=== PATIENT | male | born 1955 | race Caucasian/White ===

== ENCOUNTER 2024-12-20 01:41 | Emergency (ER) | payer MEDICARE ==
[~2024-12-20] VITALS: Ht 182.9 cm; Wt 78.9 kg
--- NOTE | 2024-12-20 01:55 | ERN ---
General Chief Complaint: Blood in Urine: Stated Complaint: C/O FEVER, BLEEDING FROM PENIS AFTER PROCEDURE Time Seen by MD: 01:53 History of Present Illness Initial Comments Patient is a 59-year-old male with a history of BPH and recurrent prostatitis who underwent a cystoscopy yesterday and comes in today with rigors fever. Timing/Duration: 24 hours Allergies: Coded Allergies: No Known Allergies (Unverified Allergy, Unknown, 12/20/24) Home Meds Active Scripts Cefdinir (Cefdinir) 300 Mg Capsule, 1 CAP PO BID for 10 Days, #20 CAP 0 Refills Prov:KATYA TANNER MD 12/20/24 Past Medical History Past Medical History: Prostatitis, Unknown Past Surgical History: Unknown Constitutional: (+) chills, (+) fever, (+) malaise EENTM: (-) eye pain, (-) blurred vision, (-) tearing, (-) double vision, (-) ear pain, (-) ear discharge, (-) nose pain, (-) nose congestion, (-) throat pain, (-) Throat swelling, (-) mouth pain, (-) tooth pain, (-) mouth swelling, (-) other documentation Respiratory: (-) cough, (-) orthopnea, (-) short of breath, (-) stridor, (-) wh eezing, (-) other documentation Cardiovascular: (-) chest pain, (-) edema, (-) palpitations, (-) syncope, (-) dyspnea on exertion, (-) other documentation Gastrointestinal/Abdominal: (-) nausea, (-) vomiting, (-) diarrhea, (-) abdominal pain, (-) abdominal distention, (-) constipation, (-) rectal bleeding, (-) dark stool/melena, (-) other documentation Genitourinary: (-) penile discharge, (-) dysuria, (-) frequency, (-) hematuria, (-) pain, (-) other documentation Musculoskeletal: (-) Neck pain, (-) back pain, (-) Flank Pain, (-) joint pain, (-) joint swelling, (-) muscle pain, (-) muscle stiffness, (-) gout, (-) other documentation Neuro: (-) altered mental status, (-) headache, (-) syncope, (-) paralysis, (-) numbness, (-) seizure, (-) pre-existing deficit, (-) tremors, (-) weakness, (-) dizziness, (-) slurred speech, (-) vertigo, (-) other documentation Physical Exam General Appearance: (+) mild distress Eye: bilateral eye normal inspection, bilateral eye PERRL, bilateral eye EOMI Ear, Nose, Throat: (+) hearing grossly normal, (+) normal ENT inspection, (+) moist mucous membraine Neck: (+) normal inspection, (+) supple, (+) full range of motion Respiratory: (+) chest non-tender, (+) lungs clear Heart: (+) regular Vascular: (+) no edema, (+) normal peripheral pulse Gastrointestinal: (+) soft, (+) non-tender, (+) bowel sound present Results Laboratory and Microbiology Lab and Micro Result Laboratory Tests Test 12/20/24 02:02 12/20/24 02:35 12/20/24 04:51 White Blood Count 3.3 K/uL (4.8-10.8) L 2.2 K/uL (4.8-10.8) #L Red Blood Count 4.49 MIL/uL (4.50-6.20) L 4.35 MIL/uL (4.50-6.20) L Hemoglobin 14.8 g/dL (14.0-18.0) 14.2 g/dL (14.0-18.0) Hematocrit 41.2 % (42-54) L 40.4 % (42-54) L Mean Corpuscular Volume 91.8 fL (79-99) 92.9 fL (79-99) Mean Corpuscular Hemoglobin 33.0 pg (27.0-33.0) 32.6 pg (27.0-33.0) Mean Corpuscular Hemoglobin Concent 35.9 g/dL (32.0-36.0) 35.1 g/dL (32.0-36.0) Red Cell Distribution Width 12.4 % (11.0-15.5) 12.3 % (11.0-15.5) Platelet Count 124 K/uL (130-400) L 107 K/uL (130-400) L Mean Platelet Volume 11.0 fL (7.5-10.5) H 10.7 fL (7.5-10.5) H Immature Granulocyte % (Auto) 0.0 % (0-1) 0.0 % (0-1) Neutrophils (%) (Auto) 84.3 % (40.0-77.0) H 92.2 % (40.0-77.0) H Lymphocytes (%) (Auto) 12.4 % (21.0-51.0) L 6.3 % (21.0-51.0) L Monocytes (%) (Auto) 1.2 % (3.0-13.0) L 0.5 % (3.0-13.0) L Eosinophils (%) (Auto) 1.5 % (0.0-8.0) 0.5 % (0.0-8.0) Basophils (%) (Auto) 0.6 % (0.0-5.0) 0.5 % (0.0-5.0) Neutrophils # (Auto) 2.8 K/uL (1.8-7.7) 2.1 K/uL (1.8-7.7) Lymphocytes # (Auto) 0.4 K/uL (1.0-4.8) L 0.1 K/uL (1.0-4.8) L Monocytes # (Auto) 0.0 K/uL (0.1-1.0) L 0.0 K/uL (0.1-1.0) L Eosinophils # (Auto) 0.05 K/uL (0.00-0.70) 0.01 K/uL (0.00-0.70) Basophils # (Auto) 0.02 K/uL (0.00-0.20) 0.01 K/uL (0.00-0.20) Absolute Immature Granulocyte (auto 0.00 K/uL (0-1) 0.00 K/uL (0-1) Nucleated Red Blood Cells 0.0 % (0.0-0.19) 0.0 % (0.0-0.19) Sodium Level 141 mmol/L (136-145) Potassium Level 4.1 mmol/L (3.5-5.1) Chloride Level 101 mmol/L (101-111) Carbon Dioxide Level 29 mmol/L (21-32) Blood Urea Nitrogen 24 mg/dL (7-18) H Creatinine 1.4 mg/dL (0.5-1.3) H Glomerular Filtration Rate Calc 54 mL/min (>90) Random Glucose 107 mg/dL (70-105) H Lactic Acid Level 1.8 mmol/L (0.8-2.5) Total Calcium 9.1 mg/dL (8.5-10.1) Total Creatine Kinase 100 U/L (21-232) Troponin I High Sensitivity 9 ng/L (4-75) Urine Color BROWN (YELLOW) Urine Appearance TURBID (CLEAR) Urine pH 6.0 (5.0-8.0) Urine Specific [place] 1.012 (1.001-1.031) Urine Protein 20 mg/dL (NEGATIVE) H Urine Glucose (UA) NEGATIVE mg/dL (NEGATIVE) Urine Ketones 10 mg/dL (NEGATIVE) H Urine Occult Blood LARGE (NEGATIVE) H Urine Nitrate 2+ (NEGATIVE) H Urine Bilirubin NEGATIVE mg/dL (NEGATIVE) Urine Urobilinogen 0.2 mg/dL (0.2-1.0) Urine Leukocyte Esterase 25 Lakhwinder/uL (NEGATIVE) H Urine RBC TNTC /HPF (0-1) H Urine WBC 2-5 /HPF (0-1) H Urine Bacteria None /HPF (None Seen) Segmented Neutrophils % 69 % (40-70) Band Neutrophils % 16 % (0-2) H Lymphocytes % (Manual) 12 % (22-44) L Differential Comment MANUAL DIFFERENTIAL Reactive Lymphocytes 3 % (0-0) H White Cell Morphology Comment REACTIVE LYMPHS 1+ Platelet Morphology Comment ADEQUATE Red Blood Cell Morphology See comments MDM I suspect that the patient has a UTI based on the rigors and the cystoscopy yesterday. I will hold off on obtaining a CT scan of his abdomen pelvis and head for now. We will continue with the rest of the sepsis orders. Results do show that the patient has a UTI. His CBC shows a pancytopenia I am going to repeat it to see if it is real. The patient is doing well. Gave him an IV bolus of ceftriaxone and I plan to send him home with some oral antibiotics. The patient did have another fever spike which she controlled with Tylenol and feels okay enough to go home. ED Course Orders Procedure Category Date Status Time Iv Insertion CPOE 12/20/24 Transmitted 02:00 Pulse Ox(Continuous) RT 12/20/24 Transmitted 02:00 Vital Signs Per CPOE 12/20/24 Transmitted Routine 02:00 12 Lead Ekg Tracing- EKG 12/20/24 Logged Technical 02:00 Cbc With Differential LAB 12/20/24 Complete 02:00 Blood Cult AMINTA 12/20/24 In Process 02:00 Culture Urine AMINTA 12/20/24 In Process 02:00 Creatine Kinase, Total LAB 12/20/24 Complete 02:00 Troponin I High LAB 12/20/24 Complete Sensitivity 02:00 Lactic Acid LAB 12/20/24 Complete 02:00 Basic Metabolic Panel LAB 12/20/24 Complete 02:00 Acetaminophen 325 Tab PHA 12/20/24 Complete (Tylenol 325mg Tab 02:30 Acetaminophen 325 Tab PHA 12/20/24 Complete (Tylenol 325mg Tab 02:24 Ceftriaxone 1g Vial PHA 12/20/24 Complete (Rocephine 1g Inj) 03:30 Ceftriaxone 1g Vial PHA 12/20/24 Complete (Rocephine 1g Inj) 03:09 Urinalysis LAB 12/20/24 Complete W/Microscopic 02:35 Cbc With Differential LAB 12/20/24 Complete 03:54 0.9%Nacl 1000ml (Ns PHA 12/20/24 Complete 1000ml) 04:00 Acetaminophen 325 Tab PHA 12/20/24 Complete (Tylenol 325mg Tab 05:00 Manual Differential LAB 12/20/24 Complete 04:51 Current Medications Medications (Trade) Dose Ordered Sig/Cookie Route PRN Reason Start Time Stop Time Status Last Admin Dose Admin Acetaminophen (TYLenol 325MG TAB) 325 mg STK-MED ONCE .ROUTE 12/20/24 02:24 12/20/24 02:24 DC Acetaminophen (TYLenol 325MG TAB) 650 mg ONCE ONCE PO 12/20/24 02:30 12/20/24 02:31 DC 12/20/24 03:55 Acetaminophen (TYLenol 325MG TAB) 650 mg ONCE ONCE PO 12/20/24 05:00 12/20/24 05:03 DC 12/20/24 05:09 Ceftriaxone Sodium (ROCEphine 1G INJ) 1 gm ONCE ONCE IVPB 12/20/24 03:30 12/20/24 03:31 DC 12/20/24 03:53 Ceftriaxone Sodium (ROCEphine 1G INJ) 1 gm STK-MED ONCE .ROUTE 12/20/24 03:09 12/20/24 03:14 DC Sodium Chloride 1,000 ml @ 0 mls/hr Q0M ONCE IV 12/20/24 04:00 12/20/24 04:01 DC 12/20/24 03:58 Vital Signs Date Time Temp Pulse Resp B/P (MAP) Pulse Ox O2 Delivery O2 Flow Rate FiO2 12/20/24 05:09 102.0 12/20/24 03:55 102.9 12/20/24 03:02 103.1 116 24 150/82 94 Room Air* 0 21 12/20/24 02:02 103.1 107 28 159/87 92 Room Air* 0 21 12/20/24 01:48 103.1 105 20 163/93 96 Room Air DX & DISP Disposition: Discharge Departure Impression: Primary Impression: UTI (urinary tract infection) Condition: Stable Scripts Cefdinir (Cefdinir) 300 Mg Capsule 1 CAP PO BID for 10 Days, #20 CAP 0 Refills Prov: KATYA TANNER MD 12/20/24 Referrals: SELF,REFERRAL (PCP) KATYA TANNER MD Dec 20, 2024 01:55
[2024-12-20 02:12] LABS: BASOPHILS # (AUTO) 0.02 K/uL (0.00-0.20); BASOPHILS % (AUTO) 0.6 % (0.0-5.0); EOSINOPHILS # (AUTO) 0.05 K/uL (0.00-0.70); EOSINOPHILS % (AUTO) 1.5 % (0.0-8.0); HEMATOCRIT 41.2 % (42-54); LYMPHOCYTES # (AUTO) 0.4 K/uL (1.0-4.8); LYMPHOCYTES % (AUTO) 12.4 % (21.0-51.0); MEAN CORPUSCULAR HGB CONC 35.9 g/dL (32.0-36.0); MEAN CORPUSCULAR VOLUME 91.8 fL (79-99); MONOCYTES % (AUTO) 1.2 % (3.0-13.0); NEUTROPHILS # (AUTO) 2.8 K/uL (1.8-7.7); NEUTROPHILS % (AUTO) 84.3 % (40.0-77.0); PLATELET COUNT (AUTO) 124 K/uL (130-400); RED BLOOD CELL COUNT(AUTO) 4.49 MIL/uL (4.50-6.20); RED CELL DISTRIBUTION WIDTH 12.4 % (11.0-15.5); WHITE BLOOD COUNT (AUTO) 3.3 K/uL (4.8-10.8)
[2024-12-20 02:27] LABS: CREATININE 1.4 mg/dL (0.5-1.3); POTASSIUM 4.1 mmol/L (3.5-5.1)
[2024-12-20 03:17] LABS: APPEARANCE,URINE TURBID (CLEAR); BILIRUBIN,URINE NEGATIVE (NEGATIVE); COLOR,URINE BROWN (YELLOW); GLUCOSE, URINE (UA) NEGATIVE (NEGATIVE); KETONES,URINE 10 mg/dL (NEGATIVE); LEUKOCYTE ESTERASE ,URINE 25 Leu/uL (NEGATIVE); NITRATE,URINE 2+ (NEGATIVE); OCCULT BLOOD,URINE LARGE (NEGATIVE); PROTEIN,URINE 20 mg/dL (NEGATIVE); RBC,URINE TNTC /HPF (0-1); UROBILINOGEN,URINE 0.2 mg/dL (0.2-1.0)
[2024-12-20] MEDS: cefTRIAXone 1G VIAL IVPB ONE (03:53)
[2024-12-20] MEDS: cefTRIAXone 1G VIAL ONE (03:54)
[2024-12-20] MEDS: acetaMINOPHEN 325 MG TAB ONE (03:54)
[2024-12-20] MEDS: acetaMINOPHEN 325 MG TAB PO ONE ×2 (03:55→05:09)
[2024-12-20] MEDS: 0.9%NACL 1000ML 1,000 ML IV ONE (03:58)
[2024-12-20] MEDS ORDERED: CEFD300C3 PO (04:27)
[2024-12-20 05:05] LABS: BASOPHILS # (AUTO) 0.01 K/uL (0.00-0.20); BASOPHILS % (AUTO) 0.5 % (0.0-5.0); EOSINOPHILS # (AUTO) 0.01 K/uL (0.00-0.70); EOSINOPHILS % (AUTO) 0.5 % (0.0-8.0); HEMATOCRIT 40.4 % (42-54); LYMPHOCYTES # (AUTO) 0.1 K/uL (1.0-4.8); LYMPHOCYTES % (AUTO) 6.3 % (21.0-51.0); MEAN CORPUSCULAR HEMOGLOBIN 32.6 pg (27.0-33.0); MEAN CORPUSCULAR HGB CONC 35.1 g/dL (32.0-36.0); MEAN CORPUSCULAR VOLUME 92.9 fL (79-99); MONOCYTES % (AUTO) 0.5 % (3.0-13.0); NEUTROPHILS # (AUTO) 2.1 K/uL (1.8-7.7); NEUTROPHILS % (AUTO) 92.2 % (40.0-77.0); PLATELET COUNT (AUTO) 107 K/uL (130-400); RED BLOOD CELL COUNT(AUTO) 4.35 MIL/uL (4.50-6.20); RED CELL DISTRIBUTION WIDTH 12.3 % (11.0-15.5); WHITE BLOOD COUNT (AUTO) 2.2 K/uL (4.8-10.8)
[2024-12-20 05:45] LABS: BAND NEUTROPHILS % (MANUAL) 16 % (0-2); LYMPHOCYTES % (MANUAL) 12 % (22-44); MAN.DIFF COMMENT-IMPRESSION MANUAL DIFFERENTIAL; REACTIVE LYMPHOCYTES 3 % (0-0); SEGMENTED NEUTROPHILS % 69 % (40-70); TOTAL CELLS COUNTED 75; WBC MORPHOLOGY REACTIVE LYMPHS 1+
[2024-12-20 05:46] LABS: PLATELET MORPHOLOGY COMMENT ADEQUATE
[2024-12-20 06:20] VITALS: BP 110/69; PULSE 100; RESP 20; TEMP 101; O2SAT 94
--- NOTE | 2024-12-20 06:22 | NUR ---
PER ED MD, PATIENT CLEARED FOR DISCHARGE
--- NOTE | 2024-12-20 08:11 | EKG ---
[facility] Test Date: 2024-12-20 Test Time: 02:09:26 Pat Name: KELLI ALLEN Department: ED Room: Gender: Male Specifications Checker: [id number] : [id number] Requested By: KATYA TANNER Order Number: [id number] Reading MD: Measurements Intervals [place] Rate: 108 P: 36 GA: 176 QRS: -17 QRSD: 144 T: -8 QT: 344 QTc: 461 Interpretive Statements Sinus tachycardia Right bundle branch block No previous ECG available for comparison Please click the below link to view image of tracing.
== END 2024-12-20 06:22 | disposition home or self-care (01) ==
LOC: EDBD 01:41 → EDH 01:41
DX: N39.0 Urinary tract infection, site not specified (principal)
CPT/HCPCS: 99285; 96374; 96361; 82550; 84484; 80048; 85025 ×2; 87040 ×2; 87086 ×3; 87186 ×2; 83605; 81001; 36415; 93005; J7030; J0696; 99284